=== PATIENT | male | born 1965 | race Caucasian/White ===

== ENCOUNTER 2016-08-19 16:40 | Inpatient (IN) | payer OTHER ==
[~2016-08-19] VITALS: Ht 175.3 cm; Wt 104.8 kg
[2016-08-19 17:29] LABS: BASOPHIL COUNT 0.1 K/uL (0-0.1); EOSINOPHIL (%) 1.9 % (0-5); EOSINOPHIL COUNT 0.2 K/uL (0-0.3); HEMATOCRIT 44.9 % (38.0-50.0); IMMATURE GRANULOCYTE (%) 0.3 % (0.0-0.7); LYMPHOCYTE COUNT 1.7 K/uL (1.0-2.8); MCH 31.4 PG (29.0-34.0); MCHC 33.6 G/DL (30.0-36.0); MCV 93.3 FL (86-99); MEAN PLAT.VOLUME 10.8 uM^3 (9.0-12.4); MONOCYTE (%) 5.7 % (3-12); MONOCYTE COUNT 0.6 K/uL (0-0.8); NEUTROPHIL (%) 75.8 % (45-76); PLATELET COUNT 202 K/uL (156-360); RBC DIS.WIDTH-CV 11.8 % (11.8-14.6); RBC DIS.WIDTH-SD 40.9 % (39-53); RED BLOOD COUNT 4.81 M/uL (4.00-5.50); WHITE BLOOD COUNT 10.6 K/uL (4.1-10.2)
[2016-08-19 17:44] LABS: CHLORIDE 105 mEq/L (99-109); POTASSIUM 3.9 mEq/L (3.7-5.4)
[2016-08-19 17:45] LABS: SODIUM 137 mEq/L (136-147)
[2016-08-19 17:46] LABS: GLUCOSE 183 mg/dL (70-99)
[2016-08-19 17:48] LABS: ANION GAP 7 MEQ/L (2-14)
[2016-08-19 17:51] LABS: UREA NITROGEN (BUN) 13 mg/dL (9-23)
[2016-08-19 17:59] LABS: GFR ESTIMATE (CALCULATED) > 59 mL/min/
[2016-08-19 19:28] LABS: Estimated Average Glucose 171 mg/dL (70-123); HEMOGLOBIN A1c (GLYCOHEMOGLOB) 7.6 % HGB (Below 5.7)
[2016-08-19] MEDS ORDERED: FAMOTIDINE20 MG PO (20:26)
[2016-08-19] MEDS ORDERED: OMEPRAZOLE20 MG PO (20:27)
[2016-08-19] MEDS ORDERED: ATORVASTATIN CA40 MG PO (20:27)
[2016-08-19] MEDS ORDERED: PRINIVIL20 MG PO (20:28)
[2016-08-19] MEDS ORDERED: GLUCOPHAGE500 MG PO (20:28)
[2016-08-19] MEDS ORDERED: LEVEMIR FL100 UNIT/1 SC (20:29)
[2016-08-19 22:00] VITALS: BP 168/94
[2016-08-19 22:37] LABS: ADD MIUA? NO; BILIRUBIN NEGATIVE; BLOOD NEGATIVE; COLOR STRAW ((YELLOW)); GLUCOSE (STRIP) NEGATIVE; KETONES NEGATIVE; LEUKOCYTES NEGATIVE; NITRITE NEGATIVE; PROTEIN (STRIP) NEGATIVE; SPECIFIC GRAVITY 1.009 (1.000-1.030); UCUL ADDED? NO; UROBILINOGEN 0.2 MG/DL (0.2-1.0)
[2016-08-20] MEDS ORDERED: PROTONIX20 MG PO (20:51)
== END 2016-08-19 22:42 | disposition left against medical advice (07) | DRG 603 ==
LOC: EME 16:40 → EDOF 21:59
DX: L03.116 Cellulitis of left lower limb (principal); E11.621 Type 2 diabetes mellitus with foot ulcer; L97.529 Non-pressure chronic ulcer of other part of left foot with unspecified severity; L97.809 Non-pressure chronic ulcer of other part of unspecified lower leg with unspecified severity; E11.622 Type 2 diabetes mellitus with other skin ulcer; E11.65 Type 2 diabetes mellitus with hyperglycemia; I10 Essential (primary) hypertension; E78.5 Hyperlipidemia, unspecified; M79.89 Other specified soft tissue disorders; E11.42 Type 2 diabetes mellitus with diabetic polyneuropathy; F17.210 Nicotine dependence, cigarettes, uncomplicated; K21.9 Gastro-esophageal reflux disease without esophagitis; M77.30 Calcaneal spur, unspecified foot
CPT/HCPCS: 73630; 80048; 81003; 83036; 83605; 85025; 87040; 87070; 87205; 93971; 99281; 99285; J0692; J1815; J3370; J7050

== ENCOUNTER 2016-08-20 14:08 | Inpatient (IN) | payer OTHER ==
[~2016-08-20] VITALS: Ht 175.3 cm; Wt 103.3 kg
[~2016-08-20 14:08] MED LIST: ATORVASTATIN CA40 MG PO; FAMOTIDINE20 MG PO; GLUCOPHAGE500 MG PO; LEVEMIR FL100 UNIT/1 SC; OMEPRAZOLE20 MG PO; PRINIVIL20 MG PO
[2016-08-20 14:46] LABS: HEMATOCRIT 45.8 % (38.0-50.0); MCH 31.5 PG (29.0-34.0); MCHC 34.1 G/DL (30.0-36.0); MCV 92.5 FL (86-99); MEAN PLAT.VOLUME 10.7 uM^3 (9.0-12.4); PLATELET COUNT 194 K/uL (156-360); RBC DIS.WIDTH-CV 11.8 % (11.8-14.6); RBC DIS.WIDTH-SD 39.9 % (39-53); RED BLOOD COUNT 4.95 M/uL (4.00-5.50); WHITE BLOOD COUNT 6.6 K/uL (4.1-10.2)
[2016-08-20 14:53] LABS: CHLORIDE 103 mEq/L (99-109); POTASSIUM 3.9 mEq/L (3.7-5.4); SODIUM 135 mEq/L (136-147)
[2016-08-20 14:56] LABS: GLUCOSE 240 mg/dL (70-99)
[2016-08-20 14:57] LABS: ANION GAP 9 MEQ/L (2-14); TOTAL BILIRUBIN 0.7 mg/dL (0.0-1.0)
[2016-08-20 14:59] LABS: ALKALINE PHOSPHATASE 170 IU/L (3-129); GFR ESTIMATE (CALCULATED) > 59 mL/min/
[2016-08-20 15:00] LABS: UREA NITROGEN (BUN) 10 mg/dL (9-23)
[2016-08-20 17:56] LABS: ADD MIUA? YES; BILIRUBIN NEGATIVE; BLOOD SMALL; COLOR STRAW ((YELLOW)); GLUCOSE (STRIP) 50; KETONES NEGATIVE; LEUKOCYTES NEGATIVE; NITRITE NEGATIVE; PROTEIN (STRIP) NEGATIVE; SPECIFIC GRAVITY 1.004 (1.000-1.030); UROBILINOGEN 0.2 MG/DL (0.2-1.0)
[2016-08-20 17:59] LABS: BACTERIA NONE SEEN /HPF; EPITHELIAL CELLS NONE SEEN /HPF; MUCUS NONE SEEN /LPF; RED BLOOD CELLS 0-5 /HPF (0-5); UCUL ADDED? NO; WHITE BLOOD CELLS 0-5 /HPF (0-5)
[2016-08-20] MEDS ORDERED: PROTONIX20 MG PO (20:51)
[2016-08-20 22:48] LABS: POINT-OF-CARE METER ID UU14100415
[2016-08-20 23:45] VITALS: BP 177/57
[2016-08-21 04:01] VITALS: BP 169/86
[2016-08-21 07:35] LABS: BASOPHIL COUNT 0.1 K/uL (0-0.1); EOSINOPHIL (%) 4.5 % (0-5); EOSINOPHIL COUNT 0.3 K/uL (0-0.3); HEMATOCRIT 42.9 % (38.0-50.0); IMMATURE GRANULOCYTE (%) 0.4 % (0.0-0.7); LYMPHOCYTE COUNT 1.7 K/uL (1.0-2.8); MCH 31.6 PG (29.0-34.0); MCHC 33.6 G/DL (30.0-36.0); MCV 94.3 FL (86-99); MONOCYTE (%) 9.4 % (3-12); MONOCYTE COUNT 0.5 K/uL (0-0.8); NEUTROPHIL (%) 54.7 % (45-76); PLATELET COUNT 195 K/uL (156-360); RBC DIS.WIDTH-CV 11.8 % (11.8-14.6); RBC DIS.WIDTH-SD 40.9 % (39-53); RED BLOOD COUNT 4.55 M/uL (4.00-5.50); WHITE BLOOD COUNT 5.5 K/uL (4.1-10.2)
[2016-08-21 07:45] VITALS: BP 175/95
[2016-08-21 07:58] LABS: ANION GAP 5 MEQ/L (2-14); CHLORIDE 108 MEQ/L (99-109); GFR ESTIMATE (CALCULATED) > 59 mL/min/; GLUCOSE 187 mg/dL (70-99); POTASSIUM 4.1 MEQ/L (3.7-5.4); SAMPLE HEMOLYSIS CHECK 0; SAMPLE ICTERIC CHECK 0; SAMPLE LIPEMIA CHECK 0; UREA NITROGEN (BUN) 7 mg/dL (9-23)
[2016-08-21 07:59] LABS: SODIUM 142 MEQ/L (136-147)
[2016-08-21 12:02] VITALS: BP 161/85
== END 2016-08-21 12:50 | disposition left against medical advice (07) | DRG 623 ==
LOC: EME 14:08 → EDOF 21:22 → 2EASTP 21:22
PROVIDERS: Hospitalist; Internal Medicine
PROC: 0JBR0ZZ Excision of Left Foot Subcutaneous Tissue and Fascia, Open Approach (ICD-10-PCS; principal; 2016-08-21)
DX: E11.621 Type 2 diabetes mellitus with foot ulcer (principal); L03.116 Cellulitis of left lower limb; L97.421 Non-pressure chronic ulcer of left heel and midfoot limited to breakdown of skin; E11.628 Type 2 diabetes mellitus with other skin complications; E11.65 Type 2 diabetes mellitus with hyperglycemia; E78.5 Hyperlipidemia, unspecified; E11.42 Type 2 diabetes mellitus with diabetic polyneuropathy; F17.210 Nicotine dependence, cigarettes, uncomplicated; I10 Essential (primary) hypertension; B96.89 Other specified bacterial agents as the cause of diseases classified elsewhere; K21.9 Gastro-esophageal reflux disease without esophagitis; E66.9 Obesity, unspecified; Z68.33 Body mass index [BMI] 33.0-33.9, adult; Z91.14 Patient's other noncompliance with medication regimen; Z91.19 Patient's noncompliance with other medical treatment and regimen; Z79.4 Long term (current) use of insulin; Z82.49 Family history of ischemic heart disease and other diseases of the circulatory system; Z83.3 Family history of diabetes mellitus; Z82.5 Family history of asthma and other chronic lower respiratory diseases
CPT/HCPCS: 73720; 80048; 80053; 81003; 82948; 85025; 85027; 99281; 99285; A6260; J1815; J3370; J7030

== ENCOUNTER 2016-10-29 10:42 | Inpatient (IN) | payer OTHER ==
[~2016-10-29] VITALS: Ht 175.3 cm; Wt 95.5 kg
[~2016-10-29 10:42] MED LIST changes: +PROTONIX20 MG PO
[2016-10-29 13:01] LABS: EOSINOPHIL (%) 2.7 % (0-5); EOSINOPHIL COUNT 0.3 K/uL (0-0.3); HEMATOCRIT 40.2 % (38.0-50.0); IMMATURE GRANULOCYTE (%) 0.1 % (0.0-0.7); INSTRUMENT ABS NEUTROPHIL CT 7.1 K/uL; LYMPHOCYTE COUNT 1.3 K/uL (1.0-2.8); MCH 31.1 PG (29.0-34.0); MCHC 34.8 G/DL (30.0-36.0); MCV 89.3 FL (86-99); MEAN PLAT.VOLUME 11.3 uM^3 (9.0-12.4); MONOCYTE (%) 9.2 % (3-12); MONOCYTE COUNT 0.9 K/uL (0-0.8); NEUTROPHIL (%) 74.2 % (45-76); NEUTROPHIL COUNT 7.1 K/uL (1.8-6.4); PLATELET COUNT 171 K/uL (156-360); RBC DIS.WIDTH-CV 12.2 % (11.8-14.6); RBC DIS.WIDTH-SD 40.2 % (39-53); WHITE BLOOD COUNT 9.5 K/uL (4.1-10.2)
[2016-10-29 13:10] LABS: CHLORIDE 103 mEq/L (99-109); POTASSIUM 3.4 mEq/L (3.7-5.4); SODIUM 138 mEq/L (136-147)
[2016-10-29 13:12] LABS: GLUCOSE 253 mg/dL (70-99)
[2016-10-29 13:13] LABS: ANION GAP 10 MEQ/L (2-14)
[2016-10-29 13:14] LABS: TOTAL BILIRUBIN 0.8 mg/dL (0.0-1.0)
[2016-10-29 13:16] LABS: ALKALINE PHOSPHATASE 190 IU/L (3-129); GFR ESTIMATE (CALCULATED) > 59 mL/min/
[2016-10-29 13:17] LABS: UREA NITROGEN (BUN) 18 mg/dL (9-23)
[2016-10-29] MEDS ORDERED: FAMOTIDINE40 MG PO (15:37)
[2016-10-29] MEDS ORDERED: PROTONIX40 MG PO (15:39)
[2016-10-29 18:20] VITALS: BP 179/85
[2016-10-29 23:31] VITALS: BP 146/69
[2016-10-30 06:05] LABS: HEMATOCRIT 39.4 % (38.0-50.0); MCH 30.6 PG (29.0-34.0); MCHC 33.5 G/DL (30.0-36.0); MCV 91.2 FL (86-99); MEAN PLAT.VOLUME 11.3 uM^3 (9.0-12.4); PLATELET COUNT 177 K/uL (156-360); RBC DIS.WIDTH-CV 12.3 % (11.8-14.6); RBC DIS.WIDTH-SD 41.4 % (39-53); RED BLOOD COUNT 4.32 M/uL (4.00-5.50)
[2016-10-30 06:35] LABS: ALKALINE PHOSPHATASE 167 IU/L (3-129); ANION GAP 8 MEQ/L (2-14); CHLORIDE 103 MEQ/L (99-109); GFR ESTIMATE (CALCULATED) > 59 mL/min/; GLUCOSE 169 mg/dL (70-99); POTASSIUM 3.6 MEQ/L (3.7-5.4); SAMPLE HEMOLYSIS CHECK 0; SAMPLE ICTERIC CHECK 0; SAMPLE LIPEMIA CHECK 0; SODIUM 138 MEQ/L (136-147); TOTAL BILIRUBIN 1.1 MG/DL (0.0-1.0); UREA NITROGEN (BUN) 12 mg/dL (9-23)
[2016-10-30 08:03] VITALS: BP 108/88
[2016-10-30 08:06] LABS: POINT-OF-CARE METER ID UU13113717
[2016-10-30 11:51] LABS: POINT-OF-CARE METER ID UU13113717
[2016-10-30 15:46] VITALS: BP 160/82
[2016-10-30 17:10] LABS: ADD MIUA? YES; BILIRUBIN NEGATIVE; BLOOD SMALL; COLOR YELLOW ((YELLOW)); GLUCOSE (STRIP) >=500; KETONES NEGATIVE; LEUKOCYTES NEGATIVE; NITRITE NEGATIVE; PROTEIN (STRIP) NEGATIVE; UROBILINOGEN 0.2 MG/DL (0.2-1.0)
[2016-10-30 17:54] LABS: BACTERIA NONE SEEN /HPF; EPITHELIAL CELLS NONE SEEN /HPF; MUCUS TRACE /LPF; RED BLOOD CELLS 0-5 /HPF (0-5); UCUL ADDED? NO; WHITE BLOOD CELLS 0-5 /HPF (0-5)
[2016-10-30 21:20] LABS: POINT-OF-CARE METER ID UU14174225
[2016-10-31 00:39] VITALS: BP 168/83
[2016-10-31 07:52] LABS: POINT-OF-CARE METER ID UU13113717
[2016-10-31 08:30] VITALS: BP 131/75
[2016-10-31 12:07] LABS: POINT-OF-CARE METER ID UU13113717
[2016-10-31 16:23] VITALS: BP 160/88
[2016-10-31 16:42] LABS: POINT-OF-CARE METER ID UU13113717
[2016-11-01 00:57] VITALS: BP 166/82
[2016-11-01 06:55] LABS: HEMATOCRIT 36.8 % (38.0-50.0); MCH 31.8 PG (29.0-34.0); MCHC 34.5 G/DL (30.0-36.0); MCV 92.2 FL (86-99); MEAN PLAT.VOLUME 10.8 uM^3 (9.0-12.4); PLATELET COUNT 190 K/uL (156-360); RBC DIS.WIDTH-CV 12.6 % (11.8-14.6); RBC DIS.WIDTH-SD 42.6 % (39-53); RED BLOOD COUNT 3.99 M/uL (4.00-5.50); WHITE BLOOD COUNT 9.4 K/uL (4.1-10.2)
[2016-11-01 07:23] VITALS: BP 141/74
[2016-11-01 07:24] LABS: ANION GAP 8 MEQ/L (2-14); CHLORIDE 101 MEQ/L (99-109); GFR ESTIMATE (CALCULATED) > 59 mL/min/; GLUCOSE 180 mg/dL (70-99); POTASSIUM 3.9 MEQ/L (3.7-5.4); SAMPLE HEMOLYSIS CHECK 0; SAMPLE ICTERIC CHECK 0; SAMPLE LIPEMIA CHECK 0; SODIUM 139 MEQ/L (136-147); UREA NITROGEN (BUN) 12 mg/dL (9-23)
[2016-11-01 15:37] VITALS: BP 188/97
== END 2016-11-01 18:25 | disposition left against medical advice (07) | DRG 623 ==
LOC: EME 10:42 → EDOF 13:39 → 5SOUTH 13:39 → ENRESERV 13:41 → 5SOUTH 18:04
PROVIDERS: Emergency Medicine; Internal Medicine
PROC: 0HBNXZZ Excision of Left Foot Skin, External Approach (ICD-10-PCS; principal; 2016-10-29)
DX: E11.628 Type 2 diabetes mellitus with other skin complications (principal); E11.69 Type 2 diabetes mellitus with other specified complication; M86.172 Other acute osteomyelitis, left ankle and foot; L03.116 Cellulitis of left lower limb; E11.621 Type 2 diabetes mellitus with foot ulcer; L97.421 Non-pressure chronic ulcer of left heel and midfoot limited to breakdown of skin; E11.42 Type 2 diabetes mellitus with diabetic polyneuropathy; E78.5 Hyperlipidemia, unspecified; E87.6 Hypokalemia; I10 Essential (primary) hypertension; K21.9 Gastro-esophageal reflux disease without esophagitis; L02.612 Cutaneous abscess of left foot; F12.90 Cannabis use, unspecified, uncomplicated; F17.210 Nicotine dependence, cigarettes, uncomplicated
CPT/HCPCS: 73610; 73630; 73720; 74176; 76937; 80048; 80053; 81003; 82948; 83605; 85025; 85027; 87040; 87070; 87075; 87205; 93926; 93970; 99281; 99285; A6021; C1894; J0690; J0692; J1650; J1815; J2270; J2405; J2543; J3370; J7030; J7050

== ENCOUNTER 2016-11-14 06:56 | Day surgery (SDC) | payer OTHER ==
[~2016-11-14] VITALS: Ht 175.3 cm; Wt 98.4 kg
[~2016-11-14 06:56] MED LIST changes: +CEFEPIME-D2 GM/50 ML IV; +PEPCID40 MG PO; +PROTONIX40 MG PO
[2016-11-14 07:29] VITALS: BP 192/108
[2016-11-14 07:44] LABS: POINT-OF-CARE METER ID UU14174212
[2016-11-14 09:15] LABS: POINT-OF-CARE METER ID UU13113675
[2016-11-14 10:45] VITALS: BP 165/84
[2016-11-14 11:25] VITALS: BP 156/70
== END 2016-11-14 11:27 | disposition home or self-care (01) ==
LOC: SDC 06:56
PROVIDERS: Podiatrist Foot & Ankle Surgery
PROC: 0QBP0ZZ Excision of Left Metatarsal, Open Approach (ICD-10-PCS; principal; 2016-11-14)
DX: M86.172 Other acute osteomyelitis, left ankle and foot (principal); E11.69 Type 2 diabetes mellitus with other specified complication; E11.621 Type 2 diabetes mellitus with foot ulcer; L97.524 Non-pressure chronic ulcer of other part of left foot with necrosis of bone; I10 Essential (primary) hypertension; K21.9 Gastro-esophageal reflux disease without esophagitis; F17.210 Nicotine dependence, cigarettes, uncomplicated
CPT/HCPCS: 76882; 82948; 87070; 87075; 87205; 88304; 88311; J0131; J0690; J1100; J2250; J2405; J2765; J3010; S0020